=== PATIENT | male | born 1965 | race Caucasian/White ===

== ENCOUNTER 2017-01-21 15:36 | Emergency (ER) | payer BC ==
[2017-01-21 15:45] VITALS: O2SAT 97
--- NOTE | 2017-01-21 16:08 | EDPHY ---
HPI/HX/ROS/PE/MDM Narrative: CHIEF COMPLAINT: Right hand laceration HPI: This patient is a 51-year-old male who presents to the Emergency Department with a laceration to the palmar aspect of his right hand obtained while hiking today, five hours prior to arrival. He reports that he slipped and caught himself with his right hand on a rock on the trail. He denies any additional injuries or trauma at the time of the event. Upon arrival, he reports pain to the site of the injury but has no additional complaints. He reports normal movement and sensation to his right hand. He reports a history of adverse reactions to Tetanus vaccines and has not had a vaccine within the last ten years. REVIEW OF SYSTEMS: Aside from elements discussed in the HPI, a comprehensive 10-point review of systems was reviewed and is negative. PMH: History of adverse reactions to Tetanus vaccination. No additional pertinent medical history. 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 PHYSICAL EXAM: General:Patient is alert, in no acute distress. Right arm: 4cm curvilinear laceration to the palmar aspect of the right hand. Light touch sensation and motor function is preserved in the axillary, median, radial and ulnar nerve distributions. There is a 2+ radial pulse with brisk cap refill. ED Course: Normally healthy 51-year-old male presents with a 4cm laceration to the palm of his right hand obtained when hiking today. He has no additional injuries. On exam, motor strength and sensation is in tact to all fingers. Brisk capillary refill. Will proceed with laceration repair. Procedure: Laceration repair. Verbal consent was obtained from the patient. The 4cm curvilinear laceration on the palm of the right hand was anesthetized using lidocaine. The wound was cleaned with standard ED protocol, draped and explored to its base with a gloved finger. There were no deep structures involved. No tendon injury was identified. The wound was repaired in single layer technique with seven 4-0 Prolene sutures. The wound repair was simple. The procedure was performed by myself, Dr. Downey. The patient does not have an up-to-date Tetanus vaccine but declines administration of a Tetanus vaccine today. I discussed with him that this places him at risk of developing a severe Tetanus infection. 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 He does agree to return for a Tetanus vaccine following the concert tomorrow. He understands strict return precautions suggestive of Tetanus infection. The patient tolerated laceration repair well. He is given return precautions and suture care instructions. He will be discharged home in good condition. General Time Seen by Provider: 01/21/17 16:07 Initial Vital Signs: Initial Vital Signs Temperature (C) 36.6 C 01/21/17 15:40 Heart Rate 96 01/21/17 15:40 Respiratory Rate 18 01/21/17 15:40 Blood Pressure 113/69 01/21/17 15:40 O2 Sat (%) 97 01/21/17 15:40 O2 Delivery Mode Room Air Allergies/Adverse Reactions: No Known Allergies Allergy (Unverified 01/21/17 15:40) Home Medications: Medication Instructions Recorded Lisinopril [Zestril 20 mg (*)] 20 mg PO 01/21/17 Omeprazole [Prilosec 20 mg] 20 mg PO DAILY 01/21/17 Pravastatin Sodium [Pravachol] 40 mg PO 01/21/17 Departure - Departure Disposition: Home, Routine, Self-Care Clinical Impression: Hand laceration Qualifiers: Encounter type: initial encounter Foreign body presence: without foreign body Laterality: right Qualified Code(s): S61.411A - Laceration without foreign body of right hand, initial encounter Condition: Good Instructions: Laceration (ED) Additional Instructions: 1. Keep your wound clean and dry. You may wash your hand or shower, but do not submerge your hand in water for an extended period of time (ie: swimming, bathing). 2. I understand that you will need to play the piano as we discussed, but otherwise keep your hand rested and avoid excessive movement. 3. Return to the Emergency Department following your show tomorrow to obtain your Tetanus vaccine, as recommended. 4. Return to the Emergency Department immediately if you experience high fever or chills, discharge from the site of your wound, change of sensation to your fingers or hand, severe pain, or for other serious concerns. Your doctor's info: Aquilino Downey MD [address] [place] [address] [email or web address] Referrals: RAMY ACHARYA [Other] - As per Instructions Report Scribed for: Aquilino Downey Report Scribed by: Daniela Moses Date of Report: 01/21/17 Time of Report: 16:08 Physician Review and Approval Statement: Portions of this note were transcribed by an ED scribe. I personally performed the history, physical exam, and medical decision making; and confirm the accuracy of the information in the transcribed note.
[2017-01-21 17:48] VITALS: BP 122/86; PULSE 95; RESP 20; TEMP 98.4
== END 2017-01-21 17:49 | disposition home or self-care (01) ==
PROC: 0HQFXZZ Repair Right Hand Skin, External Approach (ICD-10-PCS; principal; 2017-01-21)
DX: S61.411A Laceration without foreign body of right hand, initial encounter (principal); W22.8XXA Striking against or struck by other objects, initial encounter; Y99.8 Other external cause status; Y93.01 Activity, walking, marching and hiking